=== PATIENT | female | born 1980 | race Caucasian/White ===

== ENCOUNTER 2017-07-23 08:00 | Outpatient (CLI) | payer MEDICAID ==
[2017-07-23 19:15] LABS: BASOPHILS % (AUTO) 0.7 %; EOSINOPHILS % (AUTO) 1.5 %; HGB - HEMOGLOBIN 14.2 g/dL (12.0-16.0); LYMPHOCYTES % (AUTO) 18.4 %; MEAN CORPUSCULAR HEMOGLOBIN 31.5 pg (27.0-31.0); MEAN CORPUSCULAR HGB CONC 33.7 g/dL (32.0-36.0); MEAN CORPUSCULAR VOLUME 93.4 fL (81.0-99.0); MEAN PLATELET VOLUME 11.3 fL (7.9-10.8); MONOCYTES % (AUTO) 6.2 %; NEUTROPHILS % (AUTO) 73.2 %; PLT - PLATELET COUNT 201 10^3/uL (130-450); RED BLOOD COUNT 4.52 10^6/uL (4.20-5.40); RED CELL DISTRIBUTION WIDTH 13.2 % (12.0-15.0); WHITE BLOOD COUNT 6.6 x10^3/uL (4.8-10.8)
[2017-07-23 19:16] LABS: ABNORMAL LYMPHS % (MANUAL) 0 %
[2017-07-23 19:35] LABS: BAND NEUTROPHILS % (MANUAL) 3 %; EOSINOPHILS # (MANUAL) 0.1 10^3/uL (0-0.7); LYMPHOCYTES # (MANUAL) 1.1 10^3/uL (1.5-3.5); LYMPHOCYTES % (MANUAL) 16 %; MONOCYTES # (MANUAL) 0.3 10^3/uL (0.0-1.0); NEUTROPHILS # (MANUAL) 5.2 10^3/uL (1.5-6.6); NEUTROPHILS % (MANUAL) 76 %; PLATELET ESTIMATE, MANUAL NORMAL (130-450,000) (NORMAL); PLATELET MORPHOLOGY NORMAL APPEARANCE (NORMAL); RBC MORPHOLOGY (MULTIPLE) NORMAL APPEARANCE (NORMAL)
[2017-07-23 19:36] LABS: DIFFERENTIAL COMMENT MANUAL DIFFERENTIAL
[2017-07-23 19:38] LABS: ALBUMIN 4.6 g/dL (3.2-5.5); ALBUMIN/GLOBULIN RATIO 1.3 (1.0-2.2); ALKALINE PHOSPHATASE 68 IU/L (42-121); ALT ALANINE AMINOTRANSFERASE 19 IU/L (10-60); AST ASPARTATE AMINOTRANSFERASE 22 IU/L (10-42); BILIRUBIN,TOTAL 0.4 mg/dL (0.2-1.0); BUN - BLOOD UREA NITROGEN 11 mg/dL (6-20); CALCIUM 9.6 mg/dL (8.5-10.3); CARBON DIOXIDE - CO2 23 mmol/L (21-32); CHLORIDE 104 mmol/L (101-111); CHOL/HDL RATIO 3.8 (<4.4); CHOLESTEROL 248 mg/dL; CREATININE 0.7 mg/dL (0.4-1.0); GFR - MDRD 95 (>89); GLUCOSE 99 mg/dL (70-100); HDL CHOLESTEROL 65 mg/dL; LDL CHOLESTEROL,CALCULATED 145 mg/dL; LDL/HDL RATIO 2.2 (<4.4); SODIUM 139 mmol/L (135-145); TOTAL PROTEIN 8.1 g/dL (6.7-8.2); VLDL CHOLESTEROL 38 mg/dL
[2017-07-23 19:48] LABS: THYROID STIMULATING HORMONE 3.48 uIU/mL (0.34-5.60)
[2017-07-23 19:57] LABS: FOLATE 16.56 ng/mL (5.90 - >24.8)
== END 2017-07-23 08:01 | disposition home or self-care (01) ==
LOC: LAB.WCP 08:00
PROVIDERS: ATTEND Nurse Practitioner
DX: R53.83 Other fatigue (principal); R03.0 Elevated blood-pressure reading, without diagnosis of hypertension
CPT/HCPCS: 36415; 80053; 80061; 82306; 82607; 82746; 83721; 84443; 85025

== ENCOUNTER 2018-10-14 08:52 | Outpatient (CLI) | payer MEDICAID ==
--- NOTE | 2018-10-14 12:20 | Ultrasound Report ---
Reason: TEST POSITIVE Procedure Date: 10/14/2018 Accession Number: [id number] / [id number] Procedure: US - OB First Trimester CPT Code: FULL RESULT: EXAM: FIRST TRIMESTER OBSTETRIC ULTRASOUND (Less than 11 weeks) EXAM DATE: 10/14/2018 11:59 AM. CLINICAL HISTORY: TEST POSITIVE. LMP: Unknown. COMPARISONS: None. TECHNIQUE: Transabdominal and transvaginal ultrasound examination with static image documentation. Examination technically limited because of body habitus and inability to empty bladder for transvaginal imaging. CLINICAL DATES: EGA 7 weeks 1 day with STACI / based on PE. ASSESSMENT: Gestational Sac: Single intrauterine. Mean gestational sac diameter: 25.6 mm = 7 weeks 2 days. Embryo: CRL (crown-rump length) 9 mm = 6 weeks 6 days. Cardiac activity: 140 beats per minute. Yolk sac: 3 mm. Amniotic fluid: Not accurately assessed at this gestational age. Early placenta: Not visible at this gestational age. Other: No perigestational fluid collection demonstrated. MATERNAL STRUCTURES: Uterus: Anteverted/Retroverted. Unremarkable. Cervix: Closed. Right Ovary/Adnexa: The ovary measures 4.4 x 2.5 x 4.4 cm, volume 25.3 cc. Unremarkable. Left Ovary/Adnexa: The left ovary is not visualized. Free Fluid: None. Other: None. IMPRESSION: Single viable intrauterine at EGA 6 weeks 6 days with STACI 06/03/2019 based on crown-rump length, which is concordant with clinical dates. RADIA
== END 2018-10-14 08:53 | disposition home or self-care (01) ==
LOC: DI 08:52
PROVIDERS: ATTEND Obstetrics & Gynecology
DX: Z32.01 Encounter for pregnancy test, result positive (principal)
CPT/HCPCS: 76801; 76817

== ENCOUNTER 2018-11-04 15:28 | Outpatient (CLI) | payer MEDICAID ==
[2018-11-04 15:30] LABS: MUDS CUTOFF CONCENTRATIONS CUTOFF CONC BELOW:
[2018-11-04 15:48] LABS: AMPHETAMINE SCREEN,URINE NEGATIVE (NEGATIVE); BENZODIAZEPINES SCREEN, URINE NEGATIVE (NEGATIVE); COCAINE SCREEN URINE NEGATIVE (NEGATIVE); METHADONE SCREEN, URINE NEGATIVE (NEGATIVE); METHAMPHETAMINES SCREEN, URINE NEGATIVE (NEGATIVE); OPIATE SCREEN, URINE NEGATIVE (NEGATIVE); OXYCODONE SCREEN, URINE NEGATIVE (NEGATIVE); PROPOXYPHENE SCREEN, URINE NEGATIVE (NEGATIVE); TRICYCLIC ANTIDEPRESSANT,URINE NEGATIVE (NEGATIVE)
== END 2018-11-04 16:00 | disposition home or self-care (01) ==
LOC: LAB.R 15:28
PROVIDERS: ATTEND Obstetrics & Gynecology
DX: Z36.89 Encounter for other specified antenatal screening (principal)
CPT/HCPCS: 80306

== ENCOUNTER 2018-11-14 12:02 | Outpatient (CLI) | payer SELFPAY | END 2018-11-14 12:03 | disposition home or self-care (01) | LOC: LAB 12:02 | PROVIDERS: ATTEND Obstetrics & Gynecology | DX: Z01.89 Encounter for other specified special examinations (principal) | CPT/HCPCS: 36415 ==

== ENCOUNTER 2018-12-04 13:15 | Outpatient (CLI) | payer MEDICAID ==
[2018-12-04 19:05] LABS: BASOPHILS % (AUTO) 0.3 %; EOSINOPHILS # (AUTO) 0.1 10^3/uL (0.0-0.7); EOSINOPHILS % (AUTO) 1.2 %; HGB - HEMOGLOBIN 12.9 g/dL (12.0-16.0); LYMPHOCYTES # (AUTO) 1.3 10^3/uL (1.5-3.5); LYMPHOCYTES % (AUTO) 17.1 %; MEAN CORPUSCULAR HEMOGLOBIN 30.4 pg (27.0-31.0); MEAN CORPUSCULAR HGB CONC 33.2 g/dL (32.0-36.0); MEAN CORPUSCULAR VOLUME 91.5 fL (81.0-99.0); MEAN PLATELET VOLUME 12.9 fL (7.9-10.8); MONOCYTES # (AUTO) 0.3 10^3/uL (0.0-1.0); MONOCYTES % (AUTO) 4.6 %; NEUTROPHILS # (AUTO) 5.7 10^3/uL (1.5-6.6); PLT - PLATELET COUNT 212 10^3/uL (130-450); RED BLOOD COUNT 4.25 10^6/uL (4.20-5.40); RED CELL DISTRIBUTION WIDTH 13.3 % (12.0-15.0); WHITE BLOOD COUNT 7.4 x10^3/uL (4.8-10.8)
[2018-12-05 11:02] LABS: HEPATITIS B SURFACE ANTIGEN NON-REACTIVE (NON-REACTIVE)
[2018-12-05 15:06] LABS: HIV AG/AB 4TH GEN NON-REACTIVE (NON-REACTIVE)
== END 2018-12-04 23:59 | disposition home or self-care (01) ==
LOC: LAB.N 13:15
PROVIDERS: ATTEND Obstetrics & Gynecology
DX: O09.91 Supervision of high risk pregnancy, unspecified, first trimester (principal); Z36.89 Encounter for other specified antenatal screening
CPT/HCPCS: 36415; 81220; 81243; 81329; 81599; 85025; 86592; 86762; 86850; 86900; 86901; 87340; 87389

== ENCOUNTER 2018-12-26 13:24 | Outpatient (CLI) | payer MEDICAID ==
--- NOTE | 2018-12-29 10:35 | Ultrasound Report ---
Reason: SUPERVISION HIGH RISK , FIRST TRIMESTER Procedure Date: 12/26/2018 Accession Number: [id number] / [id number] Procedure: US - OB Detailed Eval CPT Code: FULL RESULT: EXAM: COMPLETE OBSTETRICAL ULTRASOUND EXAM DATE: 12/26/2018 02:11 PM. CLINICAL HISTORY: anatomic survey, prior . LMP: 08/25/2018 COMPARISON: OB FIRST TRIMESTER 10/14/2018 9:29 AM. TECHNIQUE: Real-time transabdominal pelvic ultrasound, sonographic evaluation of the fetus performed by the siebel architect. Multiple branch sales and service representative static images were saved for review. Additional transvaginal imaging to more accurately evaluate cervical length/placental position/etc. DATING: Established EGA 17weeks/2days with STACI 06/03/2019 based on the first ultrasound on 10/14/2018, assigned dating by the clinical provider. EGA 17weeks/4days with STACI 06/01/2019 based on LMP/. EGA 18weeks/1day with STACI 05/28/2019 based on the current ultrasound. GENERAL EVALUATION Santana . Cardiac activity: 152 bpm. movement: Visualized. Presentation: Transverse with head on maternal left side. Placenta: Anterior position. No evidence for previa or accreta. Umbilical cord: 3 vessel cord. Central placental cord origin. Amniotic fluid: Subjectively normal. KENTON 13.8 cm, MVP 4.5 cm. BIOMETRY Bi-Parietal Diameter (BPD): 4.1 cm, 18weeks/2days Head Circumference (HC): 15.2 cm, 18 weeks/2days Abdominal Circumference (AC): 12.8 cm, 18 weeks/3 days Femur Length (FL): 2.5 cm, 17 weeks/5days Estimated Weight: 222 g, 88.7 percentile for 17weeks/2days. ANATOMY The intracranial structures, profile, face/nose/lips, spine, 4 chamber heart and outflow tracts, stomach, abdominal wall and cord insertion, diaphragm, kidneys, bladder, and extremities were visualized and demonstrate no abnormality. MATERNAL STRUCTURES Uterus: Unremarkable. Cervix: Long and closed. Right ovary/adnexa: Unremarkable. Left ovary/adnexa: There is a corpus luteum cyst, 2.1 x 1.5 x 1.6 cm, previously 2.1 x 1.5 x 1.6 cm. Free fluid: None. IMPRESSION: 1. Santana live intrauterine with gestational age 17weeks/2days based on source of assigned dating. 2. Estimated weight is within expected limits for assigned dating. 3. Normal anatomic survey. No anatomic abnormalities are detected at this time. 4. Anterior placenta. No evidence for previa or accreta. RADIA
== END 2018-12-26 13:25 | disposition home or self-care (01) ==
LOC: DI 13:24
PROVIDERS: ATTEND Obstetrics & Gynecology
DX: Z36.89 Encounter for other specified antenatal screening (principal)
CPT/HCPCS: 76811

== ENCOUNTER 2019-01-08 13:42 | Outpatient (CLI) | payer MEDICAID ==
[2019-01-08 18:49] LABS: HGB - HEMOGLOBIN 11.7 g/dL (12.0-16.0); MEAN CORPUSCULAR HEMOGLOBIN 30.8 pg (27.0-31.0); MEAN CORPUSCULAR HGB CONC 33.5 g/dL (32.0-36.0); MEAN CORPUSCULAR VOLUME 91.8 fL (81.0-99.0); MEAN PLATELET VOLUME 12.4 fL (7.9-10.8); RED BLOOD COUNT 3.8 10^6/uL (4.20-5.40); WHITE BLOOD COUNT 8.2 x10^3/uL (4.8-10.8)
[2019-01-08 19:27] LABS: % IRON SATURATION 14 % (20-50); IRON 54 ug/dL (28-170); TOTAL IRON BINDING CAPACITY 395 ug/dL (250-450); TRANSFERRIN 282 mg/dL (192-382)
[2019-01-08 19:31] LABS: FERRITIN 57.3 ng/mL (11.0-306.8)
== END 2019-01-08 23:59 | disposition home or self-care (01) ==
LOC: LAB.N 13:42
PROVIDERS: ATTEND Obstetrics & Gynecology
DX: O09.91 Supervision of high risk pregnancy, unspecified, first trimester (principal); E06.3 Autoimmune thyroiditis; G25.81 Restless legs syndrome; R53.83 Other fatigue
CPT/HCPCS: 36415; 81599; 82105; 82728; 83540; 84443; 84466; 85027; 86376; 86800

== ENCOUNTER 2019-03-09 10:09 | Outpatient (CLI) | payer MEDICAID | END 2019-03-09 10:10 | disposition home or self-care (01) | LOC: LAB 10:09 | PROVIDERS: ATTEND Obstetrics & Gynecology | DX: O09.529 Supervision of elderly multigravida, unspecified trimester (principal); Z3A.00 Weeks of gestation of pregnancy not specified | CPT/HCPCS: 36415; 82950 ==

== ENCOUNTER 2019-03-12 08:51 | Outpatient (CLI) | payer MEDICAID | END 2019-03-12 08:52 | disposition home or self-care (01) | LOC: LAB 08:51 | PROVIDERS: ATTEND Obstetrics & Gynecology | DX: O99.810 Abnormal glucose complicating pregnancy (principal); Z3A.00 Weeks of gestation of pregnancy not specified | CPT/HCPCS: 36415; 82951; 82952 ==

== ENCOUNTER 2019-04-06 12:04 | Outpatient (CLI) | payer MEDICAID | END 2019-04-06 23:59 | disposition home or self-care (01) | LOC: LAB.N 12:04 | PROVIDERS: ATTEND Obstetrics & Gynecology | DX: O99.280 Endocrine, nutritional and metabolic diseases complicating pregnancy, unspecified trimester (principal); Z3A.00 Weeks of gestation of pregnancy not specified | CPT/HCPCS: 36415; 84443 ==

== ENCOUNTER 2019-04-10 09:03 | Outpatient (CLI) | payer MEDICAID ==
--- NOTE | 2019-04-13 13:40 | Ultrasound Report ---
Reason: GESTATIONAL DIABETES, SUPERVISION HIGH RISK PREG Procedure Date: 04/10/2019 Accession Number: [id number] / [id number] Procedure: US - OB Limited CPT Code: Final Report FULL RESULT: EXAM: LIMITED OBSTETRICAL ULTRASOUND EXAM DATE: 04/10/2019 10:09 AM. CLINICAL HISTORY: Gestational diabetes, supervision high risk . COMPARISON: OB DETAILED EVAL 12/26/2018 2:11 PM. TECHNIQUE: Real-time sonographic evaluation of the fetus performed by the private tutors and teachers. Multiple bottling equipment sales representative static images were saved for review. DATING: Established EGA 32 weeks 2 days with STACI 06/03/2019. GENERAL EVALUATION Santana . Cardiac activity: 143 bpm. movement: Visualized. Presentation: Cephalic. Placenta: Anterior position. Amniotic fluid: Normal. KENTON 9.5 cm. MVP 3.1 cm. BIOMETRY Bi-Parietal Diameter (BPD): 8.1 cm, 32 weeks 4 days Head Circumference (HC): 29.4 cm, 32 weeks 3 days Abdominal Circumference (AC): 28.9 cm, 32 weeks 6 days Femur Length (FL): 6.3 cm, 32 weeks 4 days Estimated weight 2028 g, 53rd percentile. IMPRESSION: 1. Santana live intrauterine with gestational age 32 weeks 2 days based on first ultrasound/working due date. 2. Normal estimated weight and amniotic fluid. RADIA
== END 2019-04-10 09:04 | disposition home or self-care (01) ==
LOC: DI 09:03
PROVIDERS: ATTEND Obstetrics & Gynecology
DX: O09.93 Supervision of high risk pregnancy, unspecified, third trimester (principal); O24.419 Gestational diabetes mellitus in pregnancy, unspecified control; Z3A.32 32 weeks gestation of pregnancy
CPT/HCPCS: 76815

== ENCOUNTER 2019-05-01 15:58 | Outpatient (CLI) | payer MEDICAID ==
[2019-05-01 16:12] VITALS: BP 126/80
--- NOTE | 2019-05-04 17:14 | PROCEDURE REPORT ---
- HPI Diagnosis/Indication for NST: Gestational Diabetes Current EDU 06/03/19 Gestation 35 Weeks and 2 Days 7 Para 3 Vital Signs Temperature 97.7 F 05/01/19 16:11 Heart Rate 111 H 05/01/19 16:11 Respiratory Rate 18 05/01/19 16:11 Blood Pressure 126/80 05/01/19 16:11 O2 Saturation 100 05/01/19 16:11 Temperature 97.7 F 05/01/19 16:11 Heart Rate 111 H 05/01/19 16:11 Respiratory Rate 18 05/01/19 16:11 Blood Pressure 126/80 05/01/19 16:11 O2 Saturation 100 05/01/19 16:11 - NST Procedure NST Procedure Start Date 05/01/19 Start Time 16:10 Stop Time 16:45 Patient States Movement Yes EFM 135 mod daniel 15x15 accels no decels TOCO: quiet - Results and Plan Findings/Impression: Cat I tracing Plan: Continue with twice weekly NST and weekly KENTON Plan for delivery at 39 wga
== END 2019-05-01 17:00 | disposition home or self-care (01) ==
LOC: WFO 15:58 → FBP 15:59 → WFO 17:00
PROVIDERS: ATTEND Obstetrics & Gynecology
DX: O24.419 Gestational diabetes mellitus in pregnancy, unspecified control (principal); Z3A.35 35 weeks gestation of pregnancy
CPT/HCPCS: 59025; 76815

== ENCOUNTER 2019-05-01 16:54 | Outpatient (CLI) | payer MEDICAID ==
--- NOTE | 2019-05-02 04:55 | Ultrasound Report ---
Reason: GESTATIONAL DIABETES Procedure Date: 05/01/2019 Accession Number: [id number] / [id number] Procedure: US - OB Limited CPT Code: Final Report FULL RESULT: EXAM: LIMITED OBSTETRICAL ULTRASOUND EXAM DATE: 05/01/2019 05:04 PM. CLINICAL HISTORY: GESTATIONAL DIABETES. COMPARISON: OB LIMITED 04/10/2019 9:28 AM. TECHNIQUE: Real-time sonographic evaluation of the fetus performed by the metal molder. Multiple sales representative wire rope static images were saved for review. DATING: Established EGA 35 weeks 2 days with STACI 06/03/2019. GENERAL EVALUATION Santana . Cardiac activity: 135 bpm. Presentation: Cephalic. Placenta: Anterior position. No evidence of previa. Amniotic fluid: Normal. KENTON 13.2 cm. MVP 3.9 cm. ANATOMY Not assessed. MATERNAL STRUCTURES Cervix is long and closed. Cervix measures 4-4.7 cm transabdominally. IMPRESSION: 1. Santana live intrauterine with gestational age 35 weeks 2 days based on established STACI. 2. Amniotic fluid index 13.2 cm. MVP 3.9 cm. RADIA
== END 2019-05-01 16:55 | disposition home or self-care (01) ==
LOC: DI 16:54
PROVIDERS: ATTEND Obstetrics & Gynecology
DX: O24.419 Gestational diabetes mellitus in pregnancy, unspecified control (principal); Z3A.35 35 weeks gestation of pregnancy
CPT/HCPCS: 76815

== ENCOUNTER 2019-05-05 14:26 | Outpatient (CLI) | payer MEDICAID ==
[2019-05-05 14:40] VITALS: BP 112/74
--- NOTE | 2019-05-07 22:37 | PROCEDURE REPORT ---
- HPI Diagnosis/Indication for NST: Other (AMA) Current EDU 06/03/19 Gestation 35 Weeks and 6 Days 5 Para 4 Vital Signs Temperature 97.9 F 05/05/19 14:39 Heart Rate 88 05/05/19 14:39 Respiratory Rate 20 05/05/19 14:39 Blood Pressure 112/74 05/05/19 14:39 O2 Saturation 97 05/05/19 14:39 Temperature 97.9 F 05/05/19 14:39 Heart Rate 88 05/05/19 14:39 Respiratory Rate 20 05/05/19 14:39 Blood Pressure 112/74 05/05/19 14:39 O2 Saturation 97 05/05/19 14:39 - NST Procedure NST Procedure Start Date 05/05/19 Start Time 14:33 Stop Time 14:59 Vibroacoustic Stimulation Used No Patient States Movement Yes - Results and Plan Findings/Impression: 39yo with GDM and AMA here for NST. I did not see the patient. NST reviewed, Category 1
== END 2019-05-05 15:10 | disposition home or self-care (01) ==
LOC: WFO 14:26 → FBP 14:29 → WFO 15:10
PROVIDERS: ATTEND Obstetrics & Gynecology
DX: O09.523 Supervision of elderly multigravida, third trimester (principal); O24.419 Gestational diabetes mellitus in pregnancy, unspecified control; Z3A.35 35 weeks gestation of pregnancy
CPT/HCPCS: 59025; 76815

== ENCOUNTER 2019-05-05 15:10 | Outpatient (CLI) | payer MEDICAID ==
--- NOTE | 2019-05-06 00:57 | Ultrasound Report ---
Reason: GESTATIONAL DIABETES Procedure Date: 05/05/2019 Accession Number: [id number] / [id number] Procedure: US - OB Limited CPT Code: Final Report FULL RESULT: EXAM: LIMITED OBSTETRICAL ULTRASOUND EXAM DATE: 05/05/2019 03:42 PM. CLINICAL HISTORY: GESTATIONAL DIABETES. Weekly KENTON. COMPARISON: OB LIMITED 05/01/2019 5:04 PM. TECHNIQUE: Real-time sonographic evaluation of the fetus performed by the tool programmer. Multiple insurance claims representative static images were saved for review. Additional transvaginal imaging to more accurately evaluate cervical length/placental position/etc. DATING: Established EGA 35 weeks 6 days with STACI 06/03/2019. GENERAL EVALUATION Santana . Cardiac activity: 126 bpm. Presentation: Cephalic. Placenta: Anterior position. Amniotic fluid: Normal. KENTON 12.5 cm. MVP 6.4 cm. MATERNAL STRUCTURES Cervix: Long and closed, measuring 4.6 cm transabdominally. IMPRESSION: 1. Santana live intrauterine with gestational age 35 weeks 6 days based on established STACI. 2. KENTON 12.5 cm. RADIA
== END 2019-05-05 15:11 | disposition home or self-care (01) ==
LOC: DI 15:10
PROVIDERS: ATTEND Obstetrics & Gynecology
DX: O24.419 Gestational diabetes mellitus in pregnancy, unspecified control (principal); Z3A.35 35 weeks gestation of pregnancy
CPT/HCPCS: 76815

== ENCOUNTER 2019-05-07 07:00 | Outpatient (CLI) | payer MEDICAID ==
[2019-05-08 21:16] LABS: TRICHOMONAS VAGINALIS DNA NEGATIVE (NEGATIVE)
== END 2019-05-07 23:59 | disposition home or self-care (01) ==
LOC: LAB.R 07:00
PROVIDERS: ATTEND Obstetrics & Gynecology
DX: Z36.89 Encounter for other specified antenatal screening (principal)
CPT/HCPCS: 87491; 87591; 87661; 87797

== ENCOUNTER 2019-05-11 09:10 | Outpatient (CLI) | payer MEDICAID ==
--- NOTE | 2019-05-12 09:49 | Ultrasound Report ---
Reason: GESTATIONAL DIABETES, SUPER OF HIGH RISK Procedure Date: 05/11/2019 Accession Number: [id number] / [id number] Procedure: US - OB F/U or Repeat CPT Code: Final Report FULL RESULT: EXAM: FOLLOW-UP OBSTETRICAL ULTRASOUND EXAM DATE: 05/11/2019 10:10 AM. CLINICAL HISTORY: GESTATIONAL DIABETES, SUPER HIGH RISK . COMPARISON: None. TECHNIQUE: Real-time sonographic evaluation of the fetus performed by the public health teacher. Additional transvaginal imaging to more accurately evaluate cervical length/placental position/etc. Multiple termite control representative static images were saved for review. DATING: Established EGA 36 weeks 5 days with STACI 06/03/2019 based on source of assigned dating. EGA 36 weeks 3 days with STACI 06/05/2019 based on the current ultrasound. GENERAL EVALUATION Santana . Cardiac activity: 132 bpm. movement: Visualized. Presentation: Cephalic. Placenta: Anterior position. Amniotic fluid: Normal. KENTON 17.3 cm. MVP 6.3 cm. BIOMETRY Bi-Parietal Diameter (BPD): 8.7 cm, 35 weeks 2 days Head Circumference (HC): 31.8 cm, 35 weeks 5 days Abdominal Circumference (AC): 33.2 cm, 37 weeks 0 days Femur Length (FL): 7.3 cm, 37 weeks 3 days Estimated Weight: 3034 g, 57% percentile for weeks/days. IMPRESSION: 1. Santana live intrauterine with gestational age 36 weeks 5 days based on position assigned dating. 2. Estimated weight is within expected limits for assigned dating. RADIA
== END 2019-05-11 09:11 | disposition home or self-care (01) ==
LOC: DI 09:10
PROVIDERS: ATTEND Nurse Practitioner Obstetrics & Gynecology
DX: O09.93 Supervision of high risk pregnancy, unspecified, third trimester (principal); O24.419 Gestational diabetes mellitus in pregnancy, unspecified control; Z3A.36 36 weeks gestation of pregnancy
CPT/HCPCS: 76816

== ENCOUNTER 2019-05-11 10:13 | Outpatient (CLI) | payer MEDICAID ==
[2019-05-11 10:28] VITALS: BP 105/78
--- NOTE | 2019-05-21 09:40 | PROCEDURE REPORT ---
- HPI Diagnosis/Indication for NST: Gestational Diabetes Current EDU 06/03/19 Gestation 36 Weeks and 5 Days 4 Para 4 Vital Signs Temperature 36.5 C 05/11/19 10:22 Heart Rate 94 05/11/19 10:22 Respiratory Rate 18 05/11/19 10:22 Blood Pressure 105/78 05/11/19 10:22 O2 Saturation 99 05/11/19 10:22 Temperature 36.5 C 05/11/19 10:22 Heart Rate 94 05/11/19 10:22 Respiratory Rate 18 05/11/19 10:22 Blood Pressure 105/78 05/11/19 10:22 O2 Saturation 99 05/11/19 10:22 - NST Procedure NST Procedure Start Date 05/11/19 Start Time 10:20 Stop Time 10:50 Vibroacoustic Stimulation Used No Patient States Movement Yes - Results and Plan Findings/Impression: base line 140, good excelerations Plan: continue with NST
== END 2019-05-11 10:50 | disposition home or self-care (01) ==
LOC: WFO 10:13 → FBP 10:15 → WFO 10:50
PROVIDERS: ATTEND Obstetrics & Gynecology
DX: O24.419 Gestational diabetes mellitus in pregnancy, unspecified control (principal); Z3A.36 36 weeks gestation of pregnancy
CPT/HCPCS: 59025

== ENCOUNTER 2019-05-19 10:24 | Outpatient (CLI) | payer MEDICAID ==
[2019-05-19 10:42] VITALS: BP 115/74
--- NOTE | 2019-05-19 11:32 | PROCEDURE REPORT ---
- HPI Diagnosis/Indication for NST: Gestational Diabetes Current EDU 06/03/19 Gestation 37 Weeks and 6 Days 5 Para 3 Vital Signs Temperature 97.5 F L 05/19/19 10:40 Heart Rate 88 05/19/19 10:40 Respiratory Rate 18 05/19/19 10:40 Blood Pressure 115/74 05/19/19 10:40 O2 Saturation 97 05/19/19 10:40 Temperature 97.5 F L 05/19/19 10:40 Heart Rate 88 05/19/19 10:40 Respiratory Rate 18 05/19/19 10:40 Blood Pressure 115/74 05/19/19 10:40 O2 Saturation 97 05/19/19 10:40 - NST Procedure NST Procedure Start Date 05/19/19 Start Time 10:34 Stop Time 10:50 Vibroacoustic Stimulation Used No Patient States Movement Yes - Results and Plan Findings/Impression: Category 1 NST. Continue ongoing surveillance.
== END 2019-05-19 10:58 | disposition home or self-care (01) ==
LOC: WFO 10:24 → FBP 10:26 → WFO 10:58
PROVIDERS: ATTEND Obstetrics & Gynecology
DX: O24.419 Gestational diabetes mellitus in pregnancy, unspecified control (principal); Z3A.37 37 weeks gestation of pregnancy
CPT/HCPCS: 59025; 76815

== ENCOUNTER 2019-05-19 11:00 | Outpatient (CLI) | payer MEDICAID ==
--- NOTE | 2019-05-19 12:48 | Ultrasound Report ---
Reason: GESTATIONAL DIABETES Procedure Date: 05/19/2019 Accession Number: [id number] / [id number] Procedure: US - OB Limited CPT Code: Final Report FULL RESULT: EXAM: LIMITED OBSTETRICAL ULTRASOUND EXAM DATE: 05/19/2019 12:20 PM. CLINICAL HISTORY: Gestational diabetes. Weekly KENTON. COMPARISON: OB LIMITED 05/05/2019 3:19 PM OB F/U OR REPEAT 05/11/2019 9:42 AM. TECHNIQUE: Real-time sonographic evaluation of the fetus performed by the egg smeller. Multiple outreach representative static images were saved for review. DATING: Established EGA 37 weeks 6 days with STACI 06/03/2019. GENERAL EVALUATION Santana . Cardiac activity: 155 bpm. movement: Visualized. Presentation: Cephalic. Placenta: Anterior position. Amniotic fluid: Normal. KENTON 14.2 cm. MVP 6.9 cm. MATERNAL STRUCTURES Long and closed cervix, transabdominally 4.3 cm. IMPRESSION: 1. Santana live intrauterine with gestational age 37 weeks 6 days based on 06/03/2019. 2. Adequate amniotic fluid. RADIA
== END 2019-05-19 11:01 | disposition home or self-care (01) ==
LOC: DI 11:00
PROVIDERS: ATTEND Obstetrics & Gynecology
DX: O24.419 Gestational diabetes mellitus in pregnancy, unspecified control (principal); Z3A.37 37 weeks gestation of pregnancy
CPT/HCPCS: 76815

== ENCOUNTER 2019-05-25 09:32 | Outpatient (CLI) | payer MEDICAID ==
[2019-05-25 09:54] LABS: BASOPHILS % (AUTO) 0.3 %; EOSINOPHILS # (AUTO) 0.1 10^3/uL (0.0-0.7); EOSINOPHILS % (AUTO) 1.5 %; HGB - HEMOGLOBIN 13.5 g/dL (12.0-16.0); LYMPHOCYTES # (AUTO) 1.1 10^3/uL (1.5-3.5); LYMPHOCYTES % (AUTO) 15.8 %; MEAN CORPUSCULAR HEMOGLOBIN 32.2 pg (27.0-31.0); MEAN CORPUSCULAR HGB CONC 34.9 g/dL (32.0-36.0); MEAN CORPUSCULAR VOLUME 92.4 fL (81.0-99.0); MEAN PLATELET VOLUME 11.9 fL (7.9-10.8); MONOCYTES # (AUTO) 0.5 10^3/uL (0.0-1.0); NEUTROPHILS # (AUTO) 5.1 10^3/uL (1.5-6.6); NEUTROPHILS % (AUTO) 74.2 %; PLT - PLATELET COUNT 191 10^3/uL (130-450); RED BLOOD COUNT 4.19 10^6/uL (4.20-5.40); RED CELL DISTRIBUTION WIDTH 14.9 % (12.0-15.0); WHITE BLOOD COUNT 6.9 x10^3/uL (4.8-10.8)
== END 2019-05-25 09:33 | disposition home or self-care (01) ==
LOC: LAB 09:32
PROVIDERS: ATTEND Obstetrics & Gynecology
DX: O34.219 Maternal care for unspecified type scar from previous cesarean delivery (principal); Z30.2 Encounter for sterilization; Z3A.00 Weeks of gestation of pregnancy not specified; O24.919 Unspecified diabetes mellitus in pregnancy, unspecified trimester
CPT/HCPCS: 36415; 85025; 86850; 86900; 86901; 86920

== ENCOUNTER 2019-05-27 05:24 | Inpatient (IN) | payer MEDICAID ==
[~2019-05-27 05:24] MED LIST: ACETAMINOPHEN 1,000 MG/100 ML 100 ML IV ONE; CITRIC ACID/SODIUM CITRATE 15 ML UDC PO ONE; LACTATED RINGERS 1,000 ML IV SCH; ceFAZolin 2 GM in SODIUM CHLORIDE 0.9% 100ML 100 ML IV ONE
--- NOTE | 2019-05-27 07:03 | ANESTHESIA ---
Pre-Anesthesia VS, & Labs - Diagnosis previous c/s, desires sterilization - Procedure repeat c/s with bilateral salpingectomy Vital Signs: Temp Pulse Resp BP Pulse Ox 36.8 C 108 H 18 119/79 98 05/27/19 05:45 05/27/19 05:45 05/27/19 05:45 05/27/19 05:45 05/27/19 05:45 Height 5 ft 5 in Weight (kg) 89.811 kg Body Mass Index 32.5 - NPO >8 hours - Is Patient ?: Yes - Lab Results Current Lab Results: Lab results reviewed: Yes Home Medications and Allergies Active Medications Lactated Ringer's (Lr) 1,000 mls @ 0 mls/hr IV .Q0M ARTURO Last Admin: 05/27/19 05:58 Dose: 30 mls/hr Levothyroxine Sodium 25 mcg PO DAILY 03/19/19 No122/Iron/Folic Acid [ Multi Tablet] 1 each PO DAILY 03/19/19 Allergies/Adverse Reactions: Allergies Allergy/AdvReac Type Severity Reaction Status Date / Time No Known Drug Allergies Allergy Verified 03/19/19 13:49 Anes History & Medical History - Anesthetic History Family history of Anesthesia Complications: Denies Family history of Malignant Hyperthermia: Denies - Medical History Cardiovascular: reports: None Pulmonary: reports: None Gastrointestinal: reports: GERD (during ) Urinary: reports: None Neuro: reports: None Musculoskeletal: reports: Scoliosis (reported as a child, no issues) Endocrine/Autoimmune: reports: HyPOthyroidism, Other (gestational diabetes) Blood Disorders: reports: None Smoking Status: Former smoker (quit 9 months ago) Psychosocial: reports: No issues indicated - Surgical History Gynecologic: section - Obstetrical History : 5 Parity: 4 Events: positive: Gestational diabetes Exam General: Alert, Oriented x3, Cooperative, No acute distress Dental: WNL Mouth Openin Fingerbreadth Neck Mobility: Normal Mallampati classification: II Thyromental Distance: greater than 6 cm Respiratory: Lungs clear, Normal breath sounds, No respiratory distress, No accessory muscle use Cardiovascular: Regular rate, Normal S1, Normal S2, No murmurs Mental/Cognitive Status: Alert/Oriented X3, Normal for patient Plan Anesthesia Type: Spinal Consent for Procedure(s) Verified and Reviewed: Yes Code Status: Attempt Resuscitation ASA classification: 2-Mild systemic disease Is this case an emergency?: No
[2019-05-27] MEDS ORDERED: ceFAZolin 1 GM VIAL ONE (07:04)
--- NOTE | 2019-05-27 07:11 | HISTORY & PHYSICAL EXAMINATION ---
HPI - History of Present Illness HPI Comment/Other: CC: OB PreOp Visit HPI: Pt is a 39 yo at 38 weeks 5 days here today for an ob pre-op visit for a repeat , and this time with a tubal ligation Blood sugars wnl Endorses FM, denies LOF/CTX/VB. Scheduled for CS/BTL on 05/27/2019. Again confirms desire for BTL. No chnages in health hx since time of prior exam. Allergies: No Known Allergies Medications: * TRUE METRIX LANCETS Please check blood sugar before breakfast and one hour after meals (4 times daily) TRUE METRIX BLOOD GLUCOSE TEST IN VITRO STRIP (GLUCOSE BLOOD) Please check blood sugar before breakfast and one hour after meals (4 times daily) DX O24.419; Route: IN VITRO TRUE METRIX METER DEVICE (BLOOD GLUCOSE MONITORING SUPPL) Please check blood sugar before breakfast and one hour after meals (4 times daily) UNIVERSAL 1 LANCETS ULTRA THIN (LANCETS) Please check blood sugars 4 times a day; Route: SUBCUTANEOUS D-CARE GLUCOMETER W/DEVICE KIT (BLOOD GLUCOSE MONITORING SUPPL) Please check blo od sugar before breakfast and 1 hour after meals (4 times daily) LEVOTHYROXINE SODIUM 25 MCG ORAL TABLET (LEVOTHYROXINE SODIUM) Take 1 tablet by mouth daily; Route: ORAL VITAMIN TABLET ( VIT-FE FUMARATE-FA TABS) take one tablet by mouth daily Problems: Preop exam (ICD-V72.84) (XBX95-G56.818) Gestational diabetes (ICD-648.80) (YHK25-P52.419) Abnormal glucose tolerance in (ICD-648.83) (HZK45-N47.810) Supervision high risk , multigravida, unspecified trimester (ICD-V23.3) (LWS75-M04.90) Restless legs syndrome [RLS] (ICD-333.94) (GZG80-W23.81) 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) (RFD68-E24.3) Supervision high risk , first trimester (ICD-V23.9) (GSF07-S95.91) Deliveries by (ICD-669.71) (LDA56-Y89) Cervix, screening for malignant neoplasm (ICD-V76.2) (GXI99-T59.4) Encounter for other specified screening (GIF60-B95.89) Vitamin B12 deficiency (ICD-266.2) (HBB18-C23.8) Hyperlipidemia mixed (ICD-272.2) (LPQ84-R23.2) Vitamin D deficiency (ICD-268.9) (PDT79-T48.9) Elevated BP reading without HTN diagnosis (ICD-796.2) (QMV43-G80.0) Panic disorder without agoraphobia with mild panic attacks (ICD-300.01) (ICD10- F41.0) Fatigue (ICD-780.79) (UBT04-V84.83) Allergies, seasonal (ICD-477.0) (DDT85-Y50.2) Insomnia, psychophysiologic (ICD-307.42) (ASS02-G87.04) Generalized anxiety disorder (ICD-300.02) (IPD07-M19.1) Risk Factors: Smoked Tobacco Use: Former smoker Cigarettes: Yes -- 3 cig per day pack(s) per day, Year Started: 1996 Smokeless Tobacco Use: Never Passive Smoke Exposure: no HIV High Risk Behavior: no Caffeine Use: 2 drinks per day Exercise: yes Times/wk: 1 Type of Exercise: hiking,walking Seatbelt Use: 100 % Sun Exposure: occasionally Alcohol Use: no Drug Use: no Vital Signs: Patient Profile: 39 Years Old Female Height: 65 inches Weight: 197 pounds BMI: 32.90 BP sittin / 74 Cuff size: regular Vitals Entered By: ELMO Morrow (May 25, 2019 8:57 AM) No known allergies: T Urinalysis (Dipstick) Color: yellow Appearance: clear Leukocytes: negative Nitrites: negative Urobilinogen: negative Protein: negative pH 7 Blood: negative Specific Locke: 1.010 Ketones: negative Bilirubin: negative Glucose: negative Urine Results Entered By: ELMO Morrow (May 25, 2019 9:15 AM) Past Medical History: Anxiety Disorder Panic Disorder without agoraphobia Insomnia Environmental and Seasonal Allergies Past Surgical History: x3, 1999, 2009, 2015 Flowsheet View for Follow-up Visit Estimated weeks of gestation: 38 5/7 Weight: 197 Blood pressure: 116 / 74 Urine Protein: negative Urine Glucose: negative Urine Nitrite: negative Urine Leuks: negative Fundal height: 39 FHR: 128 Vaginal bleeding: no Vaginal discharge: no activity: yes Labor symptoms: no Smokin cig per day Next visit: 1 wk Impression & Recommendations: Problem # 1: Supervision high risk , multigravida, unspecified trimester (ICD-V23.3) (HKA97-T41.90) No complaints other than fatigued by GDM well controlled with diet COnt twice weekly NST and weekly KENTON O pos/ Rub imm [place] 46 XX--> AFP normal FAS:Anterior placenta. No evidence of previa or accreta Normal anatomy. GLUCOLA 154, 3H OGTT failed. -A1DM with normal blood sugars on profiling. TdaP: complete Influenza complete GBS: neg Vertex by US HSV: denies. Desires BTL- SIGNED [facility] CONSENT 03/09/19 Breast pump: Given RLTCS- Type and cross for 2 units given hx of 3 prior CS TSH 3.04 at last visit. Levothyroxine 25 mcg. Orders: 0502F - SUBSEQUENT VISIT (CPT-0502F) Problem # 2: Preop exam (ICD-V72.84) (GQK67-C15.818) Orders: 0502F - SUBSEQUENT VISIT (CPT-0502F) Reviewed risks/benefits/alternatives to and BTL Risks include, but are not limited to, bleeding, infection, damage to neatby tissue and organs. On average, EBL of up to 1 liter is considered within normal limits for CS. Risks of blood transfusion include infection Risk of HIV 1/2million nationwide Risk of Hepatitis 1/1 million Risks of transfusion reaction Infection risk moderate given clean/contaminated nature of procedure and IV antibiotics will be given. Damage to nearby tissue and organs including bladder, bowel, ureters, blood vessels, nerves, and fetus Damage may be noted intra-op and may be delayed until after the procedure is complete Reviewed management of complications and efforts to avoid such outcomes but reviewed that they may occur despite our best efforts Confirmed that sterlization is desired Patient understands that tubal ligation is an irreversible process that will result in future infertility Written informed consent obtained. Patient Portal: [id number] Current Allergies: No Known Allergies Current Meds: * TRUE METRIX LANCETS Please check blood sugar before breakfast and one hour after meals (4 times daily) TRUE METRIX BLOOD GLUCOSE TEST IN VITRO STRIP (GLUCOSE BLOOD) Please check blood sugar before breakfast and one hour after meals (4 times daily) DX O24.419; Route: IN VITRO TRUE METRIX METER DEVICE (BLOOD GLUCOSE MONITORING SUPPL) Please check blood sugar before breakfast and one hour after meals (4 times daily) UNIVERSAL 1 LANCETS ULTRA THIN (LANCETS) Please check blood sugars 4 times a day; Route: SUBCUTANEOUS D-CARE GLUCOMETER W/DEVICE KIT (BLOOD GLUCOSE MONITORING SUPPL) Please check blood sugar before breakfast and 1 hour after meals (4 times daily) LEVOTHYROXINE SODIUM 25 MCG ORAL TABLET (LEVOTHYROXINE SODIUM) Take 1 tablet by mouth daily; Route: ORAL VITAMIN TABLET ( VIT-FE FUMARATE-FA TABS) take one tablet by mouth daily PMH/PSH - Past Medical History Cardiovascular: positive: None Respiratory: positive: None Neuro: positive: None Endocrine/Autoimmune: positive: HyPOthyroidism, Other (gestational diabetes) GI: positive: GERD (during ) : positive: None Psych: positive: Anxiety, Panic attacks Musculoskeletal: positive: Scoliosis (reported as a child, no issues) - Past Surgical History /LABEL MAKER: positive: section Social & Family Hx - Social History Smoking Status: Former smoker (quit 9 months ago) Meds/Allgy - Home Medications Home Medications: Ambulatory Orders Medication Instructions Recorded Confirmed Levothyroxine Sodium 25 mcg PO DAILY 03/19/19 03/19/19 No122/Iron/Folic Acid 1 each PO DAILY 03/19/19 03/19/19 [ Multi Tablet] - Allergies Allergies/Adverse Reactions: Allergies Allergy/AdvReac Type Severity Reaction Status Date / Time No Known Drug Allergies Allergy Verified 03/19/19 13:49 Exam - Vital Signs Vital Signs: Vital Signs x48h Temp Pulse Resp BP Pulse Ox 05/27/19 05:45 98.2 F 108 H 18 119/79 98
[2019-05-27] MEDS ORDERED: LIDOCAINE 1%-EPI 1:100000 20 ML MDV ONE (07:19)
[2019-05-27] MEDS ORDERED: LACTATED RINGERS 1,000 ML IV ONE ×2 (07:45→08:23)
[2019-05-27] MEDS: KETOROLAC 30 MG/ML VIAL IVP SCH ×3 (09:15→21:52)
[2019-05-27] MEDS ORDERED: diphenhydrAMINE 25 MG CAPSULE PO PRN (09:53)
[2019-05-27] MEDS ORDERED: OXYTOCIN/DEXTROSE 5 % 30 UNIT/500 ML BAG IV PRN (09:53)
--- NOTE | 2019-05-27 09:59 | OPERATIVE REPORT ---
Operative Report - General Admit Date: 05/27/19 Procedure Date: 05/27/19 Planned Procedure: Repeat low transverse and bilateral tubal sterilization via salpingectomy Pre-Op Diagnosis: IUP at 39 wga ; History of prior , desires sterilization, GDM Procedure Performed: Repeat low transverse and bilateral salpingectomy Post Op Diagnosis: Same and delivery of term gestation - Procedure Note Primary Surgeon: Alcira Kauffman MD Secondary Surgeon: KRYSTAL Ledesma CNM Anesthesia Provider: Logan Duenas CRNA Anesthesia Technique: Spinal Pathology: Placenta for routine discard; bilateral tubal segments to pathology IV Fluids (mL): 1,300 Estimated Blood Loss (mL): 450 Urine Output (mL): 100 Indications: 39 yo with with complicated by gestational diabetes and history of 3 prior presents for repeat and bilateral tubal sterilization. complicated by AMA, gestational diabetes, tobacco use, and history of 3 prior c-sections. Desires sterilization due to increasing risks of . Findings: Normal uterus, tubes, and ovaries. Female in vertex position with Apgars of 9/9 and weight pending Complications: None - Other Other Information/Narrative: Risks benefits and alternatives of the procedure were discussed. Written informed consent was obtained. Patient was taken to the operating room where spinal anesthesia was placed and found to be adequate. She was prepped and draped in the usual sterile fashion in the dorsal supine position with a leftward tilt. Saldaña catheter was in place. SCDs were in place and activated. Cefazolin 2 g IV was given as a preoperative antibiotic. Preoperative timeout was performed. A Pfannenstiel incision was made in the skin with a scalpel and carried through the underlying layer of fascia in a combination of sharp and blunt dissection. The fascia was incised in the midline, and the incision was extended laterally with the Andrade scissors. The superior aspect of the fascial incision was grasped with the Beit clamps, elevated, and the underlying rectus muscles were dissected off bluntly and sharply using the Andrade scissors. Attention was then turned to the inferior aspect of the incision which in a similar fashion was grasped, tented up with Beti clamps, and the underlying rectus muscles dissected off bluntly and sharply using Andrade scissors. The rectus muscles were then in the midline. The peritoneum was identified, tented up, and entered bluntly. The peritoneal incision was extended superiorly and inferiorly with good visualization of the bladder. The bladder that blade was then inserted. A bladder flap was not created. The lower uterine segment of the uterus was identified, and incised in a transverse fashion with a scalpel. The uterus was entered bluntly. The uterine incision was extended in a craniocaudal fashion by manual stretch. The bladder blade was removed. The was delivered from from vertex position. Baby was wrapped in a warm sterile towel. Delayed cord clamping was performed. After cessation of pulsations, the cord was clamped x2 and cut. The was handed off to the waiting pediatricians. The placenta was removed with manual expression. The uterus was exteriorized and cleared of all clots clots and debris via manual swipe using Ray-PenPath x2. The uterine incision was then repaired in a running locked fashion using 0 Vicryl suture. The incision was reinforced with a running imbricating layer again using 0-Vicryl suture. An additional figure of 8 suture using 2-0 Chromic was used to reinforce the hysterotomy. Excellent hemostasis was obtained. Attention was then turn to the left Fallopian tube. It was gently grasped and elevated with Zora clamps. A Ligasure Impact device was then used to seal and transect the underlying mesosalpinx underlying the tube. It was then used to seal and transect the tube at its insertion point on the uterine cornua. The resected Fallopian tube was then removed from the field and sent to Pathology f or review. The process was repeated on the right Fallopian tube. Good hemostasis was noted along the border of the mesosalpinx bilaterally. The uterus was returned to the abdomen. The gutters were cleared of all clots and debris. The pelvis was irrigated with warm normal saline. The uterine defect was well visualized in normal anatomic position it was noted again to be hemostatic. The peritoneum was then reapproximated with 2-0 Vicryl in a running fashion. The rectus muscles were then reapproximated using interrupted [id number] sutures using 2-0 Chromic. Good hemostasis was noted. The fascia was then closed using 0 Vicryl in a running fashion starting from the left lateral edge to the midline. A second suture was used to close the fascia in a running fashion starting from the right lateral edge and meeting in the midline, again using 0-Vicryl. A total of 20 cc of 1% lidocaine with epinephrine was injected into the suture line prior to closing the incision. The subcutaneous tissue was then irrigated and closed using 2-0 chromic in a running subcutaneous suture. Skin was closed in a running subcuticular suture using 4- 0 Monocryl. Steri-Strips were applied to reinforce the incsion and dressing was applied. Procedure was well-tolerated and without complication. Sponge lap and needle counts were correct x2. Patient was taken to recovery room in stable condition. KRYSTAL Ledesma CNM, assisted with retraction and suturing.
[2019-05-27] MEDS: LACTATED RINGERS 1,000 ML IV SCH (10:05)
[2019-05-27] MEDS ORDERED: METOCLOPRAMIDE 10 MG/2 ML VIAL IVP PRN (13:42)
[2019-05-27] MEDS ORDERED: ONDANSETRON 4 MG/2 ML VIAL IVP PRN (13:42)
[2019-05-27] MEDS ORDERED: NALBUPHINE 10 MG/ML AMP IVP PRN (13:43)
[2019-05-27] MEDS ORDERED: HYDROmorphone 0.5 MG/0.5 ML SYRINGE IVP PRN (13:44)
[2019-05-27] MEDS ORDERED: NALOXONE 0.4 MG/ML VIAL IVP PRN (13:45)
[2019-05-27] MEDS: SODIUM CHLORIDE FLUSH 0.9% 10 ML SYRINGE IVP SCH ×2 (18:13→21:49)
[2019-05-27] MEDS: SIMETHICONE CHEW 80 MG TABLET PO PRN (18:35)
[2019-05-27] MEDS: ACETAMINOPHEN 500 MG TABLET PO SCH (18:35)
[2019-05-27] MEDS: SODIUM CHLORIDE FLUSH 0.9% 10 ML SYRINGE IVP PRN ×2 (21:40→21:50)
[2019-05-28] MEDS: ACETAMINOPHEN 500 MG TABLET PO SCH ×4 (02:57→18:56)
[2019-05-28] MEDS: DOCUSATE SODIUM 100 MG CAPSULE PO SCH ×3 (02:57→21:02)
[2019-05-28] MEDS: KETOROLAC 30 MG/ML VIAL IVP SCH (02:57)
[2019-05-28] MEDS: SODIUM CHLORIDE FLUSH 0.9% 10 ML SYRINGE IVP PRN (02:58)
[2019-05-28] MEDS: SODIUM CHLORIDE FLUSH 0.9% 10 ML SYRINGE IVP SCH ×2 (02:58→18:03)
[2019-05-28 05:59] LABS: BASOPHILS % (AUTO) 0.1 %; EOSINOPHILS % (AUTO) 0.4 %; HGB - HEMOGLOBIN 10.2 g/dL (12.0-16.0); LYMPHOCYTES # (AUTO) 1.1 10^3/uL (1.5-3.5); MEAN CORPUSCULAR HEMOGLOBIN 31.6 pg (27.0-31.0); MEAN CORPUSCULAR HGB CONC 33.6 g/dL (32.0-36.0); MEAN CORPUSCULAR VOLUME 94.1 fL (81.0-99.0); MEAN PLATELET VOLUME 12.3 fL (7.9-10.8); MONOCYTES # (AUTO) 0.5 10^3/uL (0.0-1.0); MONOCYTES % (AUTO) 6.4 %; NEUTROPHILS # (AUTO) 5.7 10^3/uL (1.5-6.6); NEUTROPHILS % (AUTO) 77.4 %; PLT - PLATELET COUNT 151 10^3/uL (130-450); RED BLOOD COUNT 3.23 10^6/uL (4.20-5.40); RED CELL DISTRIBUTION WIDTH 14.9 % (12.0-15.0); WHITE BLOOD COUNT 7.4 x10^3/uL (4.8-10.8)
[2019-05-28] MEDS ORDERED: DEXAMETHASONE 4 MG/ML VIAL IVP ONE (08:29)
[2019-05-28] MEDS ORDERED: fentaNYL 100 MCG/2 ML VIAL IVP ONE (08:29)
[2019-05-28] MEDS ORDERED: ePHEDrine 50 MG/ML VIAL IVP ONE (08:29)
[2019-05-28] MEDS ORDERED: ESMOLOL 100 MG/10 ML VIAL IVP ONE (08:29)
[2019-05-28] MEDS ORDERED: KETOROLAC 30 MG/ML VIAL IVP ONE (08:29)
[2019-05-28] MEDS ORDERED: ONDANSETRON 4 MG/2 ML VIAL IVP ONE (08:29)
[2019-05-28] MEDS ORDERED: MORPHINE PF 5 MG/10 ML AMP EP ONE (08:29)
[2019-05-28] MEDS: IBUPROFEN 600 MG TABLET PO SCH ×3 (09:04→21:01)
[2019-05-28] MEDS: SIMETHICONE CHEW 80 MG TABLET PO PRN ×2 (09:28→15:03)
--- NOTE | 2019-05-28 09:50 | PROVIDER PROGRESS NOTE ---
Subjective - Prog Note Date Prog Note Date: 05/28/19 Prog Note Time: 09:00 - Subjective Pt reports feeling: Improved (Patient is doing well. Up and ambulating. Tolerating po. Pain well managed. Catheter removed; has not yet voided.) Objective - Vital Signs/Intake & Output Vital Signs: Vital Signs x48h Temp Pulse Resp BP BP Pulse Ox 05/28/19 09:17 97.5 F L 95 16 111/68 96 05/28/19 06:47 97.7 F 84 16 95/63 97 05/28/19 02:30 16 Intake & Output: Intake & Output 05/25/19 05/26/19 05/27/19 05/28/19 23:59 23:59 23:59 23:59 Intake Total 1520 Output Total 945 1100 Balance 575 -1100 - Objective General Appearance: positive: No acute distress Respiratory: positive: No respiratory distress Cardiovascular: positive: Regular rate & rhythm Abdomen: positive: Non-tender, Other (Dressing CDI) Back: positive: Nml inspection Skin: positive: Color nml - Lab Results Fish Bones: 05/28/19 05:23 Other Labs: Lab Results x24hrs 05/28/19 Range/Units 05:23 WBC 7.4 (4.8-10.8) x10^3/uL RBC 3.23 L (4.20-5.40) 10^6/uL Hgb 10.2 L (12.0-16.0) g/dL Hct 30.4 L (37.0-47.0) % MCV 94.1 (81.0-99.0) fL MCH 31.6 H (27.0-31.0) pg MCHC 33.6 (32.0-36.0) g/dL RDW 14.9 (12.0-15.0) % Plt Count 151 (130-450) 10^3/uL MPV 12.3 H (7.9-10.8) fL Neut # (Auto) 5.7 (1.5-6.6) 10^3/uL Lymph # (Auto) 1.1 L (1.5-3.5) 10^3/uL [place] # (Auto) 0.5 (0.0-1.0) 10^3/uL Eos # (Auto) 0.0 (0.0-0.7) 10^3/uL Baso # (Auto) 0.0 (0.0-0.1) 10^3/uL Absolute Nucleated RBC 0.00 x10^3/uL Nucleated RBC % 0.0 /100WBC - Other Results/Comments Other Results/Comments: POD#1 s/p LTCS and BTL Doing well Cont routine pp care Transition to po pain meds Encourage ambulation Anticipate DC home tomorrow
[2019-05-28] MEDS: LACTATED RINGERS 1,000 ML IV SCH ×2 (10:42→18:03)
[2019-05-28] MEDS: oxyCODONE 5 MG TABLET PO PRN ×2 (16:51→21:06)
[2019-05-29] MEDS: oxyCODONE 5 MG TABLET PO PRN ×3 (02:59→11:21)
[2019-05-29] MEDS: IBUPROFEN 600 MG TABLET PO SCH ×2 (03:00→08:56)
[2019-05-29] MEDS: ACETAMINOPHEN 500 MG TABLET PO SCH ×2 (03:00→11:20)
--- NOTE | 2019-05-29 08:30 | PROVIDER PROGRESS NOTE ---
Subjective - Prog Note Date Prog Note Date: 05/29/19 Prog Note Time: 08:28 - Subjective Pt reports feeling: Improved Subjective: Pain well managed on po pain meds. Pain management improved with limited use of oxycodone. Up and ambulating, tolerating po, voiding. BF going well. Ready for discharge Objective - Vital Signs/Intake & Output Vital Signs: Vital Signs x48h Temp Pulse Resp BP Pulse Ox 05/29/19 07:53 97.7 F 84 18 110/67 96 05/29/19 05:33 98.4 F 86 16 101/57 L 96 Intake & Output: Intake & Output 05/26/19 05/27/19 05/28/19 05/29/19 23:59 23:59 23:59 23:59 Intake Total 1520 Output Total 945 2200 Balance 575 -2200 - Objective General Appearance: positive: No acute distress Respiratory: positive: Chest non-tender, No respiratory distress Cardiovascular: positive: Regular rate & rhythm Abdomen: positive: Non-tender, Other (FF below umbi) Skin: positive: Color nml Extremities: positive: Non-tender, No pedal edema, Pedal edema Neurologic/Psychiatric: positive: Oriented x3 Comments/Other: Dressing CDI. Removed. Steris with some serosang staining and otherwise CDI - Lab Results Fish Bones: 05/28/19 05:23 Assessment/Plan - Problem List (1) deliv NOS-unsp Impression: POD#2: Doing well s/p r:LTCS and BTL Meeting goals for discharge RH pos/ Rub imm Routine discharge instructions given Discharge to home
--- NOTE | 2019-05-29 08:39 | DISCHARGE SUMMARY ---
"Discharge Summary Admit Date: 05/27/19 Discharge Date: 05/29/19 Discharging Provider: aJmari Code Status: Attempt Resuscitation Condition at Discharge: Good Discharge Facility Name: [facility] - DIAGNOSES Admission Diagnoses: IUP at 39 wga History of 3 prior Desires sterilization Advanced maternal age Gestational diabetes; diet controlled Waldemar's thyroiditis Discharge Diagnoses with Status of Each Condition: Same and delivery of term gestation Tubal sterilization - HPI History of Present Illness: Patient is a 39 yo at 39+0 wga admitted for repeat and tubal sterilization via salpingectomy. was complicated by diet controlled gestational diabetes with good glucose control, Waldemar's thyroiditis managed with levothyroxine, advacned maternal age, history of 3 prior c-sections, and desired sterilization. Patient was typed and crossed for 2 units of PRBC. - CONSULTS | PROCEDURES Procedures: Repeat low transverse and tubal sterilization with bilateral salpingectomy. Performed by Dr. Kauffman on 05/27/2019. - HOSPITAL COURSE Hospital Course: Patient was admitted at 39+0 wga on 05/27/2019 for scheduled repeat and bilateral salpingectomy. Procedure was performed without complication, delivering a viable female infant weighing 3484 g with Apgars of 9/9. Po stoperative course was uncomplicated and well tolerated with EBL 450 cc. By postoperative day #2, patient was meeting goals for discharge and was discharged to home. Rh positive and Rubella immune. - ALLERGIES Allergies/Adverse Reactions: Allergies Allergy/AdvReac Type Severity Reaction Status Date / Time No Known Drug Allergies Allergy Verified 03/19/19 13:49 - MEDICATIONS Home Medications: Ambulatory Orders Medication Instructions Recorded Confirmed Levothyroxine Sodium 25 mcg PO DAILY 03/19/19 03/19/19 No122/Iron/Folic Acid 1 each PO DAILY 03/19/19 03/19/19 [ Multi Tablet] - PHYSICAL EXAM AT DISCHARGE General Appearance: positive: No acute distress Respiratory: positive: No respiratory distress, Breath sounds nml Cardiovascular: positive: Regular rate & rhythm Peripheral Pulses: positive: 2+ Abdomen: positive: Non-tender, Other (Fundus firm below umbilicus. Dressing CDI. Removed to reveal steristrips with serosang staining but otherwise CDI. ) Skin: positive: Color nml Extremities: positive: Non-tender, No pedal edema Neurologic/Psychiatric: positive: Oriented x3 - LABS Result Diagrams: 05/28/19 05:23 - FOLLOW UP Follow Up: 1 week incision check with Dr. Kauffman - TIME SPENT Time Spent in Discharge (Minutes): 30"
[2019-05-29] MEDS: DOCUSATE SODIUM 100 MG CAPSULE PO SCH (08:57)
[2019-05-29] MEDS: SIMETHICONE CHEW 80 MG TABLET PO PRN (08:57)
[2019-05-29 12:11] VITALS: BP 113/71
== END 2019-05-29 13:08 | disposition home or self-care (01) | DRG 785 ==
LOC: FBP 05:24
PROVIDERS: ADMIT Obstetrics & Gynecology; ATTEND Obstetrics & Gynecology
PROC: 0UT70ZZ Resection of Bilateral Fallopian Tubes, Open Approach (ICD-10-PCS; 2019-05-27)
PROC: 10D00Z1 Extraction of Products of Conception, Low, Open Approach (ICD-10-PCS; principal; 2019-05-27 07:30)
DX: O24.420 Gestational diabetes mellitus in childbirth, diet controlled (principal); Z37.0 Single live birth; O99.284 Endocrine, nutritional and metabolic diseases complicating childbirth; E06.3 Autoimmune thyroiditis; O99.344 Other mental disorders complicating childbirth; F41.0 Panic disorder [episodic paroxysmal anxiety]; O34.211 Maternal care for low transverse scar from previous cesarean delivery; M41.9 Scoliosis, unspecified; N85.8 Other specified noninflammatory disorders of uterus; Z3A.39 39 weeks gestation of pregnancy; Z30.2 Encounter for sterilization; Z87.891 Personal history of nicotine dependence
CPT/HCPCS: 36415; 85025; A9270; J0131; J2300; J7120

== ENCOUNTER 2019-07-09 12:01 | Outpatient (CLI) | payer MEDICAID | END 2019-07-09 12:02 | disposition home or self-care (01) | LOC: LAB 12:01 | PROVIDERS: ATTEND Obstetrics & Gynecology | DX: E06.3 Autoimmune thyroiditis (principal) | CPT/HCPCS: 36415; 84443 ==

== ENCOUNTER 2021-11-27 11:34 | Outpatient (CLI) | payer MEDICAID ==
[2021-11-27 20:05] LABS: HCT - HEMATOCRIT 42.2 % (37.0-47.0); HGB - HEMOGLOBIN 14.1 g/dL (12.0-16.0); MEAN CORPUSCULAR HEMOGLOBIN 33.6 pg (27.0-31.0); MEAN CORPUSCULAR HGB CONC 33.4 g/dL (32.0-36.0); MEAN CORPUSCULAR VOLUME 100.5 fL (81.0-99.0); MEAN PLATELET VOLUME 13.2 fL (7.9-10.8); RED BLOOD COUNT 4.2 10^6/uL (4.20-5.40); RED CELL DISTRIBUTION WIDTH 13.2 % (12.0-15.0); WHITE BLOOD COUNT 6.5 x10^3/uL (4.8-10.8)
[2021-11-27 20:30] LABS: ALBUMIN/GLOBULIN RATIO 1.2 (1.0-2.2); BILIRUBIN,TOTAL 0.5 mg/dL (0.2-1.0); CALCIUM 9.1 mg/dL (8.5-10.3); CREATININE 0.7 mg/dL (0.4-1.0); POTASSIUM 4.2 mmol/L (3.5-5.0); TOTAL PROTEIN 7.3 g/dL (6.7-8.2)
[2021-11-27 20:36] LABS: THYROID STIMULATING HORMONE 2.61 uIU/mL (0.34-5.60)
[2021-11-27 20:57] LABS: ESTIMATED AVERAGE GLUCOSE 94 mg/dL (70-100); HEMOGLOBIN A1c% 4.9 % (4.27-6.07)
== END 2021-11-27 11:35 | disposition home or self-care (01) ==
LOC: LAB.N 11:34
PROVIDERS: ATTEND Obstetrics & Gynecology
DX: Z00.00 Encounter for general adult medical examination without abnormal findings (principal); O24.419 Gestational diabetes mellitus in pregnancy, unspecified control; O99.891 Other specified diseases and conditions complicating pregnancy; R53.83 Other fatigue; O99.350 Diseases of the nervous system complicating pregnancy, unspecified trimester; G25.81 Restless legs syndrome; O99.280 Endocrine, nutritional and metabolic diseases complicating pregnancy, unspecified trimester; E53.8 Deficiency of other specified B group vitamins; Z13.1 Encounter for screening for diabetes mellitus
CPT/HCPCS: 36415; 80053; 83036; 83540; 84443; 84466; 85025; 85027